=== PATIENT | male | born 1960 | race Caucasian/White ===

== ENCOUNTER 2018-08-04 21:18 | Emergency (ER) | payer OTHER ==
[~2018-08-04] VITALS: Ht 177.8 cm; Wt 72.0 kg
[2018-08-04 21:21] VITALS: BP 109/89
[2018-08-04] MEDS ORDERED: MORP30TA PO (21:54)
[2018-08-04] MEDS ORDERED: morphine IR (immed. release) 30mg tablet PO STA (21:54)
[2018-08-04] MEDS ORDERED: OXYC-150 PO (21:54)
[2018-08-04] MEDS ORDERED: morphine ER 30mg tablet PO STA (22:10)
[2018-08-04] MEDS ORDERED: oxyCODONE/APAP 10/325mg tablet PO ONE (22:15)
== END 2018-08-04 22:00 | disposition home or self-care (01) ==
LOC: ER 21:20
DX: G89.29 Other chronic pain (principal); Z76.0 Encounter for issue of repeat prescription; Z85.46 Personal history of malignant neoplasm of prostate
CPT/HCPCS: 99284